=== PATIENT | male | born 1995 | race Caucasian/White ===

== ENCOUNTER 2017-05-20 01:39 | Emergency (ER) | payer SELFPAY ==
[~2017-05-20] VITALS: Ht 185.4 cm; Wt 79.6 kg
[2017-05-20 01:48] VITALS: TEMP 36.5; Ht 185.4 cm; Wt 79.6 kg
--- NOTE | 2017-05-20 01:52 | EMERGENCY ROOM VISIT NOTE ---
History Report prepared by Arelyibcarrol: Jaylyn Kelly Under the Supervision of: Dr. Steven Mcintyre M.D. First contact with patient: 01:43 Chief Complaint: ALCOHOL OVERDOSE Stated Complaint: ALCOHOL OVERDOSE History of Present Illness The patient is a 21 year old male who presents to the Emergency Room heavily intoxicated and was transported by EMS. The patient has an abrasion on his right shoulder and right hand. The patient has been vomiting. The patient denies having a headache, neck pain, or shortness of breath. He was found vomiting in the [facility] by the police. Source of History: patient, EMS Onset: an hour ago Position: other (global) Symptom Intensity: intoxicated Quality: other (intoxicated) Associated Symptoms: + vomiting, No headache, No neck pain, No SOB Review of Systems Limited ros secondary to the patient being heavily intoxicated. Social History Smoking Status: Never Smoker Alcohol Use: occasionally Marital Status: single Housing Status: lives with roommate Occupation Status: [employer] student Current/Historical Medications No Active Prescriptions or Reported Meds Allergies Coded Allergies: No Known Allergies (Unverified , 05/20/17) Physical Exam Vital Signs Date Time Temp Pulse Resp B/P (MAP) Pulse Ox O2 Delivery O2 Flow Rate FiO2 05/20/17 06:21 96 22 05/20/17 06:06 100 15 99 05/20/17 06:01 107/67 05/20/17 05:58 98 Room Air 05/20/17 05:36 76 96 05/20/17 05:31 77 95/53 05/20/17 05:28 80 05/20/17 05:16 80 15 96 05/20/17 05:02 100/44 05/20/17 05:01 81 05/20/17 04:46 84 15 96 05/20/17 04:41 84 16 97 05/20/17 04:31 109/60 05/20/17 04:26 103 15 96 05/20/17 04:11 84 99 05/20/17 04:01 130/72 05/20/17 03:56 87 16 98 05/20/17 03:51 85 98 05/20/17 03:36 82 15 100 05/20/17 03:31 112/64 05/20/17 03:21 79 99 05/20/17 03:06 82 15 95 05/20/17 03:01 15 91/51 05/20/17 02:50 81 15 97 05/20/17 02:38 98/53 05/20/17 02:35 82 17 96 05/20/17 02:20 102 22 94 05/20/17 02:15 89 18 97 Nasal Cannula 3.0 05/20/17 02:01 122/69 05/20/17 02:00 88 18 93 05/20/17 01:57 Nasal Cannula 3.0 05/20/17 01:57 87 93 Nasal Cannula 3.0 05/20/17 01:56 18 05/20/17 01:55 90 84 Room Air 05/20/17 01:54 92 85 Room Air 05/20/17 01:50 104 05/20/17 01:49 107 27 116/98 87 Room Air 05/20/17 01:48 36.5 105 13 116/98 87 Room Air Physical Exam GENERAL: Patient is moderately intoxicated. Smells of alcohol. Well appearing and in no acute distress. Vomit on shirt. HEAD: No evidence of Trauma. AT/NC EYES: Injected conjunctiva. Normal EOM. Pupils equal/reactive. ENT: Mucous membranes moist, no nasal congestion, . NECK: No step-offs, no adenopathy, no meningismus, trachea is midline. LUNGS: No dyspnea. Clear to auscultation and equal bilaterally. No wheeze, no rhonchi. HEART: Regular rate and rhythm. No murmurs, rubs, gallops appreciated. ABDOMEN: Soft, nontender, bowel sounds positive, no masses appreciated, no peritonitis. BACK: No midline tenderness, no CVA tenderness EXTREMITIES: Normal motion all extremities, no cyanosis, no edema. Slight abrasion on left upper shoulder and right hand. NEUROLOGIC: Intoxicated. Is alert, oriented. No acute motor or sensory deficits , no focal weakness, cranial nerves grossly intact. SKIN: No rash, no jaundice, no diaphoresis. Medical Decision & Procedures ER Provider Diagnostic Interpretation: X ray results are stated below per my interpretation: Chest: 1 view: No infiltrate, no effusion, normal cardiac border. Reversed secondary to patient lying on stomach. Rotated film. Laboratory Results 05/20/17 01:49 Test 05/20/17 01:49 Anion Gap 9.0 mmol/L (3-11) Est Creatinine Clear Calc Drug Dose 111.5 ml/min Estimated GFR () 101.6 Estimated GFR (Non- 87.7 BUN/Creatinine Ratio 12.1 (10-20) Calcium Level 8.5 mg/dl (8.5-10.1) Ethyl Alcohol mg/dL 291.0 mg/dl (0-3) Laboratory results as reviewed by me. ED Course 0143: The patient was evaluated in room A12B. A complete history and physical exam was performed. 0156: I reassessed the patient and he is mildly hypoxic while sleeping. 0241: I reassessed the patient. He has clear lung sounds while breathing. Still uncomfortable. Requiring a small amount of nasal canula O2. 0603: I reassessed the patient. He is awake and oriented and answering all questions. He denies all complaints. I discussed how dangerous this was and advised that he refrain from all further alcohol. The patient is ready to be discharged home. Medical Decision Differential: Alcohol Intoxication, Drug Intoxication, Electrolyte Abnormality, Trauma, Intracranial Event, Toxicological, Excited Delirium, Serotonin Syndrome , amongst other pathologies entertained. 21 yr old intoxicated male brought in by EMS after being found by police vomiting in [facility]. Patient with no evidence nor history for trauma. Protecting airway and breathing comfortably throughout ED stay. EtOH positive. Monitored and discharged when awake, alert, oriented and denies any complaints. I had long discussion on the dangers of his alcohol ingestion, fact he was hypoxic and importance of follow up if shob, fevers, cough, etc. Medication Reconcilliation Current Medication List: was personally reviewed by me Blood Pressure Screening Patient's blood pressure: Normal blood pressure Impression Primary Impression: Alcohol intoxication Additional Impressions: Alcohol abuse Vomiting Scribe Attestation The scribe's documentation has been prepared under my direction and personally reviewed by me in its entirety. I confirm that the note above accurately reflects all work, treatment, procedures, and medical decision making performed by me. Departure Information Prescriptions No Active Prescriptions or Reported Meds Referrals No Doctor, Assigned (PCP) Patient Instructions [facility] Additional Instructions You were evaluated in emergency department for intoxication. This is a sign of Alcohol Abuse and should not be taken lightly. You had a blood alcohol level that was significantly elevated. Over the next 24 hours keep well hydrated and eat light meals. Don't drink any more alcohol. This is important. Please discuss this visit with your Primary Care Provider, [facility] and/or your loved ones. Unless an exceptional circumstance, the Hospital DOES NOT contact anyone DURING your visit, nor is your Protected Medical Information released to anyone without your approval/request. This means we do not contact your Parents, the Police, etc. However, you will likely receive a bill from the Hospital and/or your Insurance company, which will usually be sent to the Primary Policy Pat[place] (often one's Parents). Furthermore, as a student, your visit report will likely be sent to [facility] as your primary care provider, unless other Provider listed. If your incident was on campus, or if the Police were involved, they will often contact the [facility] to make them aware of what happened. Often this will result in you being required to take Alcohol Education classes (ie BASICS class) . Please see information given to you at discharge regarding contact for this. If the Police were involved you will likely be cited for public intoxication. Please contact either [facility] Police or the [place] Police for further information. Call 911 or return to Emergency Department if you develop: Passing out, difficulty breathing, many episodes of vomiting, blood in vomit or stool, abdominal pain, fevers, or other severe symptoms. We are always here to help if you feel you need further evaluation or treatment. Problem Qualifiers
[2017-05-20 02:17] LABS: BUN/CREATININE RATIO 12.1 (10-20); CALCIUM 8.5 mg/dl (8.5-10.1); CREATININE 1.18 mg/dl (0.60-1.40); POTASSIUM 3.4 mmol/L (3.5-5.1)
[2017-05-20 06:01] VITALS: BP 107/67
[2017-05-20 06:06] VITALS: O2SAT 99
[2017-05-20 06:21] VITALS: PULSE 96
--- NOTE | 2017-05-20 06:42 | DIAGNOSTIC IMAGING REPORT ---
CHEST ONE VIEW PORTABLE HISTORY: 21 years-old Male hypoxia while sleeping, etoh, vomiting acute hypoxia with alcohol abuse COMPARISON: None available TECHNIQUE: Prone AP view of the chest FINDINGS: Cardiomediastinal and hilar silhouettes are within normal limits. No pneumothorax, oral effusion, focal airspace consolidation or overt edema. Bones of the chest are grossly intact. IMPRESSION: No acute cardiopulmonary process. The above report was generated using voice recognition software. It may contain grammatical, syntax or spelling errors. Electronically signed by: Bart Issa M.D. 05/20/2017 6:41 AM Dictated Date/Time: 05/20/2017 6:39 AM
== END 2017-05-20 06:25 | disposition home or self-care (01) ==
LOC: EDBD 01:39 → C.EDA 01:43
DX: F10.129 Alcohol abuse with intoxication, unspecified (principal); Y90.8 Blood alcohol level of 240 mg/100 ml or more; R11.10 Vomiting, unspecified